=== PATIENT | female | born 1995 | race Caucasian/White ===

== ENCOUNTER 2019-01-25 18:32 | Emergency (ER) | payer SELFPAY ==
[~2019-01-25] VITALS: Ht 149.9 cm; Wt 81.1 kg
[2019-01-25] MEDS ORDERED: BACITRACIN ZINC OINT UDPKT TOP ONE (23:00)
[2019-01-25] MEDS ORDERED: IBUPROFEN 600MG TABLET PO ONE (23:00)
[2019-01-25] MEDS ORDERED: BACITRACIN 15GM TUBE TOP NR (23:45)
[2019-01-26 00:10] VITALS: BP 112/75
== END 2019-01-26 00:21 | disposition home or self-care (01) ==
LOC: ER 18:32
DX: S67.190A Crushing injury of right index finger, initial encounter (principal); W22.8XXA Striking against or struck by other objects, initial encounter; Y93.89 Activity, other specified; Y92.810 Car as the place of occurrence of the external cause
CPT/HCPCS: 29130; 73140; 81025; 99283